=== PATIENT | male | born 1990 | race African-American/Black ===

== ENCOUNTER 2017-04-30 12:47 | Inpatient (IN) | payer MEDICAID ==
[~2017-04-30] VITALS: Ht 172.7 cm; Wt 51.7 kg
--- NOTE | 2017-04-30 12:50 | NUR ---
PATIENT BIB RA FROM [facility]. PATIENT IS STATING HE IS NOT FEELING WELL. PATIENT HAS A COUGH AND CONGESTION. A/OX 4. BREATHING EVEN AND UNLBAORED. VITALS STABLE. SAFETY AND COMFORT MEASURES IN PLACE. AWAITING MD ORDERS.
--- NOTE | 2017-04-30 13:04 | NUR ---
Juan damon in [facility] - 04/30/17 at [address] MCCOY ON THE PHONE WITH [facility] DR ESCOBEDO
[2017-04-30] MEDS ORDERED: ABAC1TAB15 PO (13:30)
[2017-04-30] MEDS ORDERED: ALBUTEROL FS 2.5 MG/3 ML VIAL.NEB NEB ONE (13:30)
[2017-04-30] MEDS ORDERED: ELVI1TAB3 PO (13:30)
[2017-04-30] MEDS ORDERED: EMTR1TAB18 PO (13:30)
[2017-04-30] MEDS ORDERED: NYSTATIN (PYXIS) 500,000 UNIT/5 ML ORAL.SUSP PO SCH (13:30)
[2017-04-30] MEDS ORDERED: IV NS 0.9% 1,000 ML BAG IV ONE ×2 (13:30→15:00)
[2017-04-30] MEDS ORDERED: IPRATROPIUM NEB FS 0.5 MG/2.5 ML AMPUL.NEB NEB ONE (13:30)
--- NOTE | 2017-04-30 13:30 | NUR ---
NEW IV STARTED ON RAC, 20 G. BLOOD DRAWN AND SENT TO LAB.
[2017-04-30 13:38] LABS: BASOPHILS % (AUTO) 0.3 % (0.0-2.0); EOSINOPHILS % (AUTO) 0.6 % (0.0-6.0); HEMATOCRIT 35 % (39-51); HEMOGLOBIN 11.6 g/dL (13.5-17.5); LYMPHOCYTES # (AUTO) 0.4 /CMM (0.8-4.8); LYMPHOCYTES % (AUTO) 9.3 % (20.0-44.0); MEAN CORPUSCULAR HEMOGLOBIN 29 PG (26.0-33.0); MEAN CORPUSCULAR HGB CONC 33 g/dl (31.0-36.0); MEAN CORPUSCULAR VOLUME 88 fL (80-96); MONOCYTES # (AUTO) 0.5 /CMM (0.1-1.30); MONOCYTES % (AUTO) 11.9 % (2.0-12.0); NEUTROPHILS # (AUTO) 3.1 /CMM (1.8-8.9); NEUTROPHILS % (AUTO) 77.9 % (43.0-81.0); PLATELET COUNT (AUTO) 307 /CMM (150-450); RDW COEFFICIENT OF VARIATION 22.7 (11.5-15.0); RED BLOOD CELL COUNT(AUTO) 4.01 MIL/uL (4.5-6.0)
--- NOTE | 2017-04-30 13:41 | NUR ---
GASTROENTEROLOGY PROFESSOR AT BEDSIDE.
[2017-04-30 13:46] LABS: INR 1.06 (0.87-1.13); PROTHROMBIN TIME 11.4 SECS (9.5-12.7)
[2017-04-30 13:49] LABS: ALANINE AMINOTRANSFERASE 20 U/L (12-78); ALBUMIN 3.1 g/dL (3.4-5.0); ALKALINE PHOSPHATASE 71 U/L (46-116); ASPARTATE AMINOTRANSFERASE 12 U/L (15-37); BILIRUBIN,DIRECT 0.1 mg/dL (0.0-0.2); BILIRUBIN,TOTAL 0.2 mg/dL (0.2-1.0); CALCIUM, SERUM 8.9 mg/dL (8.5-10.1); CARBON DIOXIDE 27 mmol/L (21-32); CHLORIDE 102 mmol/L (98-107); CREATININE 0.8 mg/dL (0.6-1.3); GLUCOSE 83 mg/dL (74-106); POTASSIUM 4.2 mmol/L (3.5-5.1); SODIUM SERUM 138 mmol/L (136-145); TOTAL PROTEIN, SERUM 8.2 g/dL (6.4-8.2); UREA NITROGEN, BLOOD 8 mg/dL (7-18)
[2017-04-30 13:51] LABS: TROPONIN I < 0.017 ng/mL (0.00-0.056)
[2017-04-30] MEDS ORDERED: IPRATROPIUM NEB FS 0.5 MG/2.5 ML AMPUL.NEB ONE (14:10)
[2017-04-30] MEDS ORDERED: ALBUTEROL FS 2.5 MG/3 ML VIAL.NEB ONE (14:10)
[2017-04-30 14:39] LABS: BILIRUBIN,URINE SMALL (NEGATIVE); BLOOD, URINE Negative Ery/uL (NEGATIVE); COLOR,URINE Dark (YELLOW); KETONES,URINE Negative (NEGATIVE); LEUKOCYTE ESTERASE ,URINE Negative (NEGATIVE); NITRITE, URINE Negative (NEGATIVE); PH,URINE 6.5 (5.0-8.0); PROTEIN,URINE Trace mg/dl (NEGATIVE); UGLUCOSE Negative (NEGATIVE)
[2017-04-30 14:40] LABS: APPEARANCE,URINE CLOUDY (CLEAR)
--- NOTE | 2017-04-30 14:51 | NUR ---
RECTAL TEMP RECHECKED, READING 102.9. INFORMED.
[2017-04-30] MEDS ORDERED: MORPHINE SULFATE INJ 4 MG/ML DISP.SYRIN ONE (14:55)
[2017-04-30] MEDS ORDERED: MORPHINE SULFATE INJ 2 MG/ML DISP.SYRIN IV ONE (15:00)
[2017-04-30 15:03] LABS: BACTERIA,URINE Few /HPF (None Seen); RBC,URINE 0-2 /HPF (0-2); SQUAMOUS EPITHELIAL CELL,UR Rare /HPF (None Seen); WBC,URINE 0-2 /HPF (0-3)
[2017-04-30 15:04] LABS: CALCIUM OXALATE CRYSTALS,UR Moderate /HPF (None Seen)
[2017-04-30] MEDS ORDERED: OLAN15TA3 PO (15:30)
[2017-04-30] MEDS ORDERED: BUPR75TA8 PO (15:30)
[2017-04-30] MEDS ORDERED: SULF1TAB48 PO (15:30)
[2017-04-30] MEDS ORDERED: GUAI5SYR PO (15:30)
[2017-04-30] MEDS ORDERED: ALBU18HF2 IH (15:30)
[2017-04-30] MEDS ORDERED: TEMA15CA PO (15:30)
[2017-04-30] MEDS ORDERED: LORA1TAB PO (15:30)
[2017-04-30] MEDS ORDERED: IBUP-1955 PO (15:30)
--- NOTE | 2017-04-30 15:47 | NUR ---
REPORT GIVEN TO RN SARI FOR ADMISSION.
[2017-04-30 16:30] VITALS: BP 109/63
--- NOTE | 2017-04-30 16:43 | NUR ---
PATIENT TRANSPORTED TO [facility] VIA ACLS PROTOCOL. RN SARI TO PROVIDE BEBETO.
--- NOTE | 2017-04-30 17:26 | NUR ---
AM RN NOTE Received patient from ER @ 1640 via [place] as accompanied by ER staff. Pt A/O X3 verbally responsive. Resp even and non-labored. On tele monitor, SR 94. Denies any pain or discomfort at this time. Pt frequently requesting for food. Admission process done. Skin intact. IV site on RAC #20 intact. Bed in low locked position. Will continue to monitor. Notified Dr. Chen about new admission and new orders received. Call light with in reach. V/S BP109/63 T98.4 P93 R20 PA0/10 O2 sat 99% @RA.
[2017-04-30] MEDS ORDERED: MAGNESIUM HYDROXIDE 30 ML UDC PO PRN (17:30)
[2017-04-30] MEDS ORDERED: Z GUARD REMEDY 2 OZ OINT TP PRN (17:30)
[2017-04-30] MEDS ORDERED: MAG HYDROX/AL HYDROX/SIMETH 30 ML UDC PO PRN (17:30)
[2017-04-30] MEDS ORDERED: ZOLPIDEM TARTRATE 5 MG TABLET PO PRN (17:30)
[2017-04-30] MEDS: IV D5/0.45 NACL 1,000 ML IV PRN (17:49)
--- NOTE | 2017-04-30 18:21 | NUR ---
AM RN NOTE Patient resting in his bed, no acute distress noted. IV site intact and patent, continue on IV hydration. Will endorse care to next shift.
[2017-04-30 18:45] LABS: ABG BASE EXCESS -2.5 mmol/L; ABG OXYGEN SATURATION 97.4 % (92.0-98.5); ABG PCO2 31.3 mmHg (35.0-45.0); ABG PH 7.442 (7.350-7.450); ABG PO2 107.3 mmHg (75.0-100.0); COHb 0.5 % (0.5-1.5); MetHb 0.5 % (0.0-1.5); O2Hb 96.4 % (94.0-97.0); SITE, ABG Left Radial; VENT MODE, BG ROOM AIR
[2017-04-30] MEDS: ONDANSETRON HCL/PF 4 MG/2 ML VIAL IVP PRN (18:51)
--- NOTE | 2017-04-30 18:55 | NUR ---
AM RN NOTE Patient vomited moderate amount undigested food after eating dinner. PRN Zofran IV given and notified Dr. Chen. Will continue to monitor and endorse care to next shift.
--- NOTE | 2017-04-30 19:20 | NUR ---
TELE/RN OPENING NOTES PT ASLEEP, EASILY AROUSABLE TO NAME. A/OX3, ON RA, BREATHING EVEN AND UNLABORED. NO SIGNS OF DISTRESS. ON TELE MONITOR SHOWING SINUS RHYTHM WITH HR 90. IV TO RAC PATENT AND INTACT RUNNING IVF ORDERED. NO S/S OF INFILTRATION NOTED. PT AWARE OF STOOL COLLECTION. HAT PLACED IN TOILET. BED IN LOW/LOCKED POSITION WITH CALL LIGHT IN REACH. SIDE RAILS UPX2. WILL CONTINUE TO MONITOR
[2017-04-30 20:00] VITALS: BP 104/63
[2017-04-30] MEDS: ACETAMINOPHEN 325 MG TABLET PO PRN (20:34)
--- NOTE | 2017-04-30 20:36 | NUR ---
TELE/RN NOTES PT COMPLAINING OF HEADACHE 11/19 AND PAIN TO THE THROAT. REQUESTED TYLENOL AND ADMINISTERED PRN TYLENOL 650MG PO. OFFERED TEA OR ICE CHIPS TO HELP SOOTHE THE THROAT BUT PT REFUSED AT THIS TIME. Addendum: 04/30/17 at 2101 by VAMSI DINERO RN NOTIFIED REBECCA BURNHAM ABOUT PT'S COMPLAINT OF SORE THROAT. ASKED IF HE WOULD LIKE TO ORDER COUGH SYRUP BUT HE DENIED.
[2017-05-01] VITALS (7 sets, daily range): BP systolic 90–111; BP diastolic 50–72
[2017-05-01 06:59] LABS: BASOPHILS % (AUTO) 0.3 % (0.0-2.0); HEMATOCRIT 34 % (39-51); HEMOGLOBIN 11.1 g/dL (13.5-17.5); LYMPHOCYTES # (AUTO) 0.6 /CMM (0.8-4.8); LYMPHOCYTES % (AUTO) 18.3 % (20.0-44.0); MEAN CORPUSCULAR HEMOGLOBIN 29 PG (26.0-33.0); MEAN CORPUSCULAR HGB CONC 33 g/dl (31.0-36.0); MEAN CORPUSCULAR VOLUME 88 fL (80-96); MONOCYTES # (AUTO) 0.6 /CMM (0.1-1.30); MONOCYTES % (AUTO) 19.6 % (2.0-12.0); NEUTROPHILS # (AUTO) 1.9 /CMM (1.8-8.9); NEUTROPHILS % (AUTO) 60.8 % (43.0-81.0); PLATELET COUNT (AUTO) 322 /CMM (150-450); RDW COEFFICIENT OF VARIATION 22.5 (11.5-15.0); RED BLOOD CELL COUNT(AUTO) 3.83 MIL/uL (4.5-6.0); WHITE BLOOD COUNT (AUTO) 3.1 K/uL (4.3-11.0)
[2017-05-01 07:18] LABS: THYROID STIMULATING HORMONE 1.212 uIU/mL (0.358-3.74)
[2017-05-01 07:28] LABS: INR 1.06 (0.87-1.13); PROTHROMBIN TIME 11.4 SECS (9.5-12.7)
--- NOTE | 2017-05-01 07:30 | NUR ---
TELE/RN CLOSING NOTES PT ASLEEP, EASILY AROUSABLE TO NAME. ON RA, BREATHING EVEN AND UNLABORED. NO S/S OF DISTRESS NOTED. ON TELE MONITOR, SR WITH HEART RATE @82. IV DISLODGED AND REINSERTED TO LEFT WRIST, PATENT AND INTACT. UNABLE TO COLLECT STOOL LAST NIGHT, PT DID NOT HAVE BM. SNACKS PROVIDED DURING SHIFT, NO COMPLAINTS OF N/V. TOLERATED WELL. BED IN LOW/LOCKED POSITION, CALL LIGHT IN REACH. MADE PT COMFORTABLE THROUGHOUT SHIFT, ALL NEEDS MET AND ATTENDED. WILL ENDORSE TO AM SHIFT BEBETO.
[2017-05-01 07:37] LABS: RETICULOCYTE COUNT 0.5 % (0.6-2.5)
[2017-05-01 07:40] LABS: ALBUMIN 2.7 g/dL (3.4-5.0); BILIRUBIN,TOTAL 0.2 mg/dL (0.2-1.0); CALCIUM, SERUM 8.6 mg/dL (8.5-10.1); CREATININE 0.6 mg/dL (0.6-1.3); MAGNESIUM 1.7 mg/dL (1.8-2.4); PHOSPHORUS 3.3 mg/dL (2.5-4.9); POTASSIUM 4.3 mmol/L (3.5-5.1); TOTAL PROTEIN, SERUM 7.4 g/dL (6.4-8.2)
--- NOTE | 2017-05-01 07:48 | NUR ---
RN OPENING NOTES PATIENT IS RESTING IN BED WITH EYES CLOSED, EASILY AROUSABLE. PATIENT IS A/OX3. DENIES SOB. RESPIRATIONS APPEAR TO BE EVEN AND UNLABORED AT THIS TIME. COMPLAINT OF THROAT PAIN. PATIENT COUGHING AND SPITTING SPUTUM UP INTO TRASH. NO ACUTE DISTRESS NOTED. IV RAC INTACT WITH D5 1/2 NS AT 75ML/HR. BED LOCKED IN THE LOWEST POSITION WITH SIDE RAILS UP X2. CALL LIGHT WITHIN REACH. WILL CONTINUE TO MONITOR.
[2017-05-01] MEDS: ONDANSETRON HCL/PF 4 MG/2 ML VIAL IVP PRN ×2 (08:19→22:01)
[2017-05-01] MEDS: PANTOPRAZOLE 40 MG TABLET.DR PO SCH (08:19)
[2017-05-01 08:32] LABS: EOSINOPHILS % (MANUAL) 2 % (0-4); LYMPHOCYTES % (MANUAL) 20 % (16-48); MONOCYTES % (MANUAL) 17 % (0-11.0); NEUTROPHILS % (MANUAL) 61 (42-76)
--- NOTE | 2017-05-01 08:48 | NUR ---
RN NOTES PATIENT REQUESTING FOR DIET CHANGE TO SOFT FOODS/ PUREED DUE TO SEVERE THROAT PAIN. DISCUSSED WITH CHARGE NURSE AND GIVEN OK TO CHANGE.
[2017-05-01] MEDS: Magnesium 1GM/D5W 100ML PREMIX 100 ML IV SCH ×2 (09:49→10:51)
--- NOTE | 2017-05-01 09:52 | NUR ---
RN NOTES PATIENT D/C TELE. WILL CONTINUE TO MONITOR PATIENT.
[2017-05-01] MEDS: HYDROCODONE/APAP 5/325MG 1 EACH TABLET PO PRN ×2 (10:51→22:43)
--- NOTE | 2017-05-01 12:46 | NUR ---
RN NOTES PATIENT RECEIVED 2 BAGS OF IV MAGNESIUM REPLACEMENT. PATIENT AMBULATED WITH PT. SPUTUM SAMPLE SENT TO LAB. WILL ATTEMPT TO COLLECT STOOL FOR OB STOOL.
[2017-05-01] MEDS: ACETAMINOPHEN 325 MG TABLET PO PRN (14:22)
[2017-05-01] MEDS ORDERED: TEMAZEPAM 15 MG CAPSULE PO PRN (17:00)
[2017-05-01] MEDS ORDERED: LORAZEPAM 1 MG TABLET PO PRN (17:00)
[2017-05-01] MEDS ORDERED: SULFAMETH/TRIMETH 800/160 MG 1 UDTAB TABLET PO SCH (17:00)
[2017-05-01] MEDS ORDERED: GUAIFENESIN/D-METHORPHAN HB 5 ML UDC PO PRN (17:00)
--- NOTE | 2017-05-01 17:06 | NUR ---
RN NOTES MEDICATION RECONCILIATION COMPLETED BY DR. DURHAM. PHARMACY CALLED TO ASK ABOUT PATIENT HOME MEDS. SPOKE IWTH PATIENT. PATIENT STATED THAT BELONGINGS AND HOME MEDICATIONS ARE AT [facility] WHERE PATIENT WAS BROUGHT TO ER FROM. CALLED FACILITY AND DISCUSSED SITUATION OF NEEDING TO RECEIVE PATIENTS HIV MEDICATIONS. FIBERGLASS ROVING WINDER RAMÍREZ WILL FOLLOW UP WITH THE THREAD TWISTER TO GET PATIENT BELINGS AND MEDICATIONS SENT TO [facility]. NOTIFIED PHARMACY.
--- NOTE | 2017-05-01 17:45 | NUR ---
RN NOTES PATIENT BELONGS SENT OVER FROM [facility]. PATIENT ACCOUNTED FOR BELONGING. WAS TOLD BY CARD PUNCHER JAMES THAT MEDICATION AND BELONGINGS WOULD BE SENT OVER. NO MEDICATION WAS SENT OVER. CALLED [facility] BACK TO FOLLOW UP AND LEFT MESSAGE FOR NURSING SENIOR ESCROW OFFICER WILL AWAIT RESPONSE FROM FACILITY. PATIENT DENIES OWNING HIV MEDICATIONS.
[2017-05-01] MEDS ORDERED: ALBUTEROL FS 2.5 MG/3 ML VIAL.NEB NEB PRN (19:30)
--- NOTE | 2017-05-01 19:30 | NUR ---
MS/RN OPENING NOTES PT AWAKE, A/OX3. ON RA, BREATHING EVEN AND UNLABORED. NO S/S OF SOB OR DISTRESS NOTED. PT AWARE ABOUT COLLECTION FOR OB STOOL. IV TO LEFT WRIST PATENT AND INTACT. PT COMPLAINING ABOUT SORE THROAT. INFORMED PT THAT HE CAN HAVE ROBITUSSIN AND ALSO OFFERED WARM TEA TO HELP SOOTHE HIS THROAT. PT ACCEPTED. WILL ADMINISTER. PT ALSO REQUESTING TO GO OUTSIDE TO SMOKE, HOWEVER HIGHLY ENCOURAGED PT NOT TO BECAUSE IT WOULD FURTHER IRRITATE HIS THROAT. PT VERBALIZED UNDERSTANDING. BED IN LOW/LOCKED POSITION, CALL LIGHT IN REACH. SIDE RAILS UPX2. BELONGINGS AT BEDSIDE. WILL CONTINUE TO MONITOR
--- NOTE | 2017-05-01 20:13 | NUR ---
MS/RN NOTES PT SAID HE DOES NOT HAVE ANY HOME MEDICATIONS AND STATED THAT THE HOSPITAL WAS DISPENSING HIS MEDICATION FROM THEIR OWN PHARMACY. CALLED [facility] TO FOLLOW UP WITH THE PT'S 3 HOME MEDICATIONS, HOWEVER THEY SAID THAT THEY DONT KNOW A PATIENT BY THAT LAST NAME AND THAT I SHOULD CALL BACK TOMORROW. WILL FOLLOW UP AGAIN
--- NOTE | 2017-05-01 20:25 | NUR ---
RN CLOSING NOTES PATIENT IS AWAKE IN BED. PATIENT DENIES SOB OR CHEST PAIN AT THIS TIME. NO ACUTE DISTRESS. ALL NEEDS MET DURING SHIFT. PATIENT IS IN STABLE CONDITION. PATIENT DENIES NAUSEA. ALL MEDS GIVEN APPROPRIATE. BED LOCKED IN THE LOWEST POSITION WITH SIDE RAILS UPX2. CALL LIGHT WITHIN REACH. REPORT GIVEN TO NIGHT RN FOR CONTINUATION OF CARE.
--- NOTE | 2017-05-01 22:05 | NUR ---
MS/RN NOTES PT HAD 3 EPISODES OF EMESIS. ADMINISTERED PRN ZOFRAN. GERALDO WARREN ALSO AT BEDSIDE AT THIS TIME Addendum: 05/02/17 at 0506 by VAMSI DINERO RN NIDHI LEE NP AT BEDSIDE
[2017-05-01] MEDS: IV D5/0.45 NACL 1,000 ML IV PRN (22:30)
--- NOTE | 2017-05-01 23:00 | NUR ---
MS/RN NOTES PT COMPLAINING OF PAIN TO CHEST, ADMINISTERED PRN NORCO. WILL MONITOR FOR EFFECTIVENESS
[2017-05-02] MEDS: ONDANSETRON HCL/PF 4 MG/2 ML VIAL IVP PRN ×2 (04:33→12:48)
[2017-05-02] MEDS: HYDROCODONE/APAP 5/325MG 1 EACH TABLET PO PRN ×3 (04:38→20:26)
--- NOTE | 2017-05-02 04:48 | NUR ---
MS/RN NOTES PT NOTED TO BE EXPERIENCING SOME NAUSEA AGAIN AND CHEST TIGHTNESS/PAIN 04/21. ADMINISTERED PRN TYLENOL AND NORCO. WILL MONITOR FOR EFFECTIVENESS
--- NOTE | 2017-05-02 06:48 | NUR ---
MS/RN CLOSING NOTES PT ASLEEP, EASILY AROUSABLE TO NAME. A/OX3, ON RA BREATHING EVEN AND UNLABORED. NO S/S /OF DISTRESS NOTED. DENIES PAIN AND NAUSEA AT THIS TIME. IV TO LEFT WRIST RUNNING IVF ORDERED. FREQUENTLY PROVIDED WARM TEA TO SOOTHE THROAT. NO SIGNIFICANT CHANGES OVERNIGHT. MADE PT COMFORTABLE THROUGHOUT SHIFT. ALL NEEDS MET AND ATTENDED. BED IN LOW/LOCKED POSITION WITH CALL LIGHT IN REACH. SIDE RAILS UPX2. WILL ENDORSE TO AM SHIFT BEBETO.
--- NOTE | 2017-05-02 07:56 | NUR ---
RN OPENING NOTES PATIENT IS RESTING IN BED WITH EYES CLOSED, EASILY AROUSABLE. PATIENT IS A/OX3. DENIES SOB. RESPIRATIONS APPEAR TO BE EVEN AND UNLABORED AT THIS TIME. COMPLAINT OF THROAT PAIN. PATIENT COUGHING AND SPITTING SPUTUM UP INTO TRASH. NO ACUTE DISTRESS NOTED. IV RAC INTACT WITH D5 1/2 NS AT 75ML/HR. F/U HIV MEDICATIONS WITH PHARMACY. BED LOCKED IN THE LOWEST POSITION WITH SIDE RAILS UP X2. CALL LIGHT WITHIN REACH. WILL CONTINUE TO MONITOR.
[2017-05-02 08:00] VITALS: BP 111/69
[2017-05-02] MEDS ORDERED: DOLUTEGRAVIR PO SCH (09:00)
[2017-05-02] MEDS ORDERED: ABACAVIR PO SCH (09:00)
[2017-05-02] MEDS ORDERED: Elviteg/Cobi/Emtric/Tenofo Ala (Genvoya Tablet) 1 EACH) PO SCH (09:00)
[2017-05-02] MEDS ORDERED: LAMIVUDI PO SCH (09:00)
[2017-05-02] MEDS ORDERED: EMTRICITABINE/TENOFOVIR 1 TAB PO SCH (09:00)
[2017-05-02] MEDS ORDERED: [UNRECOGNIZED DRUG - OTHER] PO SCH (09:00)
[2017-05-02 09:14] LABS: *BASOS 0 % (.); *EOS 1 % (.); *HCT 33.7 % (37.5-51.0); *HGB 10.9 g/dL (12.6-17.7); *IMMATURE GRANULOCYTES 1 % (.); *LYMPHOCYTES 20 % (.); *LYMPHS, ABSOLUTE 0.5 x10E3/uL (0.7-3.1); *MCH 28.5 pg (26.6-33.0); *MCHC 32.3 g/dL (31.5-35.7); *MCV 88 fL (79-97); *MONOCYTES 18 % (.); *MONOS, ABSOLUTE 0.5 x10E3/uL (0.1-0.9); *NEUTROPHILS 60 % (.); *NEUTROPHILS, ABSOLUTE 1.6 x10E3/uL (1.4-7.0); *PLT 349 x10E3/uL (150-379); *RBC 3.83 x10E6/uL (4.14-5.80); *RDW 19.9 % (12.3-15.4)
[2017-05-02] MEDS: NYSTATIN (PYXIS) 500,000 UNIT/5 ML ORAL.SUSP PO SCH ×3 (09:22→18:48)
[2017-05-02] MEDS: SULFAMETH/TRIMETH 800/160 MG 1 UDTAB TABLET PO SCH (09:23)
[2017-05-02] MEDS: buPROPion 75 MG TABLET PO SCH (09:23)
[2017-05-02] MEDS: PANTOPRAZOLE 40 MG TABLET.DR PO SCH (09:23)
[2017-05-02] MEDS: OLANZAPINE 5 MG TABLET PO SCH (09:23)
[2017-05-02] MEDS: FLUCONAZOLE (100 MG) 100 MG TABLET PO SCH (09:23)
--- NOTE | 2017-05-02 09:35 | NUR ---
RN NOTES WILL D/C HOME HIV MEDS. COMMENT STATES "PER RN, PATIENT DOESN'T TAKE THESE. ID PLACED NEW ORDERS. PLEASE D/C." PATIENT TO START OTHER HIV MEDS.
[2017-05-02] MEDS: RALTEGRAVIR POTASSIUM 400 MG TABLET PO SCH ×2 (10:52→18:48)
[2017-05-02] MEDS: TENOFOVIR DISOPROXIL FUMARATE 300 MG TABLET PO SCH (10:53)
[2017-05-02] MEDS: EMTRICITABINE 200 MG CAPSULE PO SCH (10:53)
--- NOTE | 2017-05-02 11:19 | NUR ---
Social service consult requested by Dr. Chen for homelessness. Pt. is a 26 year old -[place] male who was admitted to [facility] from [facility] for HIV elver infection. MADDY met with pt. bedside. Pt. is alert and oriented x 4. Pt. was lying in bed during the assessment. Pt. has tattoos on his face that says "5150". Pt. states he has been homeless for a month. Pt. receives General Relief in the amount of $250/per month and food stamps as well. Pt. denies suicidal and homicidal ideations and visual/auditory hallucinations at this time. Pt. was admitted to [facility] from [facility]. MADDY offered pt. voluntary admission back to [facility], however pt. declined. Pt. states he would like to be discharged to his boyfriend James's residence located at [facility] [address] MADDY informed pt. she will inform supervisor in charge regarding pt. needing transportation upon discharge (tokens or taxi). Pt. has had several psychiatric hospitalizations in the past. Pt. has diagnosis of Bipolar Schizophrenia and takes medications. SW to offer pt. the following resources prior to discharge: list of HIV/AIDS [facility] community clinics in [place]; [facility] Urgent Care centers; [facility] Public [facility] Centers; List of [employer] in [place] area and List of Homeless Shelters, [employer] and Homeless Resource Directory.
--- NOTE | 2017-05-02 11:26 | NUR ---
RN NOTES PATIENT IV ACCESS BECAME INFILTRATED. IV REMOVED. NO IV PLACED IN THE LEFT FOREARM. IV PATENT AND INTACT. ONE ATTEMPT. PATIENT TOLERATED WELL. D51/2 NS RUNNING AT 75ML/HR. WILL CONTINUE TO MONITOR.
--- NOTE | 2017-05-02 12:20 | NUR ---
AMDDY met with pt. bedside and gave him the following resources: list of HIV/AIDS [facility] community clinics in [place]; [facility] Urgent Care centers; [facility] Public Health Centers; List of [employer] in [place] area and List of Homeless Shelters, [employer] and Homeless Resource Directory. Pt. informed pt's RN regarding discharge plan. Homeless Patient Waiver Form was signed by pt and placed in pt's chart. Pt. to be discharged to [address] [place] [address]. [place]. Addendum: 05/02/17 at 1509 by QUINTON CASTAÑEDA Correction: MADDY informed pt' s RN regarding discharge plan. Addendum: 05/03/17 at 1220 by QUINTON CASTAÑEDA MADDY placed copies of aforementioned resources in pt's chart.
[2017-05-02 16:00] VITALS: BP 108/69
[2017-05-02 16:41] LABS: C-REACTIVE PROTEIN 0.3 mg/dL (0.0-0.9); THYROID STIMULATING HORMONE 1.772 uIU/mL (0.358-3.74); URIC ACID 2.5 mg/dL (2.6-7.2)
[2017-05-02] MEDS ORDERED: LACTOSE-FREE FOOD 237 ML LIQUID PO SCH (17:00)
[2017-05-02 17:25] LABS: RETICULOCYTE COUNT 0.9 % (0.6-2.5)
--- NOTE | 2017-05-02 18:42 | NUR ---
RN NOTES PATIENT REMOVED OFF NPO. VIT B ORDERED PER DR. DURHAM. BOOST ORDER PER DIETARY
--- NOTE | 2017-05-02 18:45 | NUR ---
RN NOTES CALLED KITCHEN FOR BOOST. KITCHEN STATED NO STRAWBERRY BOOST. BOOST CHANGE TO VANILLA AND WILL START TOMORROW
--- NOTE | 2017-05-02 19:30 | NUR ---
MS RN NOTE RECEIVED PATIENT AWAKE AND ALERT IN BED. PATIENT STATES HE IS HAVING 8/10 GENERALIZED PAIN. RELAXATION TECHNIQUES PROVIDED. WILL ADMINISTER PAIN MEDICATION ORDERED. NO COUGH NOTED. PATIENTS APPETITE IS INCREASING. STATED HE WOULD LIKE TWO JELLOS AND TWO APPLE JUICE. BED LOCKED AND IN LOWEST POSITION, SIDE RAILS UP, CALL LIGHT WITHIN REACH. WILL CONTINUE TO MONITOR.
[2017-05-02 20:24] VITALS: BP 110/68
[2017-05-02] MEDS ORDERED: MUPIROCIN OINT 2% 22 GM TUBE SCH (21:00)
[2017-05-02 22:00] VITALS: BP 110/68
[2017-05-03 03:14] LABS: *% CD 4 POS. LYMPH 0.9 % (30.8-58.5); *% CD 8 POS. LYMPH 52.9 % (12.0-35.5); *ABSOLUTE CD 4 HELPER 5 /uL (359-1519); *ABSOLUTE CD 8 SUPPRESSOR 265 /uL (109-897); *CD4/CD8 RATIO 0.02 (0.92-3.72)
--- NOTE | 2017-05-03 06:28 | NUR ---
MS RN NOTE PATIENT STABLE. WILL ENDORSE TO DAY SHIFT FOR BEBETO.
[2017-05-03 06:42] LABS: BASOPHILS % (AUTO) 0.9 % (0.0-2.0); EOSINOPHILS # (AUTO) 0.1 /CMM (0.0-0.7); EOSINOPHILS % (AUTO) 2.5 % (0.0-6.0); HEMATOCRIT 34 % (39-51); HEMOGLOBIN 11.1 g/dL (13.5-17.5); LYMPHOCYTES # (AUTO) 0.8 /CMM (0.8-4.8); LYMPHOCYTES % (AUTO) 19.4 % (20.0-44.0); MEAN CORPUSCULAR HEMOGLOBIN 29 PG (26.0-33.0); MEAN CORPUSCULAR HGB CONC 32 g/dl (31.0-36.0); MEAN CORPUSCULAR VOLUME 89 fL (80-96); MONOCYTES # (AUTO) 0.7 /CMM (0.1-1.30); MONOCYTES % (AUTO) 15.5 % (2.0-12.0); NEUTROPHILS # (AUTO) 2.6 /CMM (1.8-8.9); NEUTROPHILS % (AUTO) 61.7 % (43.0-81.0); PLATELET COUNT (AUTO) 341 /CMM (150-450); RDW COEFFICIENT OF VARIATION 22.1 (11.5-15.0); RED BLOOD CELL COUNT(AUTO) 3.84 MIL/uL (4.5-6.0); WHITE BLOOD COUNT (AUTO) 4.3 K/uL (4.3-11.0)
--- NOTE | 2017-05-03 07:32 | NUR ---
RN OPENING NOTES PATIENT IS STANDING BY DOOR IN HALLWAY. PATIENT IS A/OX3. DENIES SOB. RESPIRATIONS APPEAR TO BE EVEN AND UNLABORED AT THIS TIME. PATIENT HAS NO COMPLAINTS OF PAIN. PATIENT DENIES NAUSEA. PATIENT COUGHING AND SPITTING SPUTUM UP. NO ACUTE DISTRESS NOTED. IV LFA INTACT AND PATENT. PATIENT EAGER TO GO OUTSIDE AND SMOKE. BED LOCKED IN THE LOWEST POSITION WITH SIDE RAILS UP X2. CALL LIGHT WITHIN REACH. WILL CONTINUE TO MONITOR.
[2017-05-03 07:59] LABS: BAND % (MANUAL) 2 % (0.0-5.0); EOSINOPHILS % (MANUAL) 2 % (0-4); LYMPHOCYTES % (MANUAL) 21 % (16-48); MONOCYTES % (MANUAL) 8 % (0-11.0); NEUTROPHILS % (MANUAL) 67 (42-76)
[2017-05-03 08:00] VITALS: BP 114/71
[2017-05-03] MEDS: NYSTATIN (PYXIS) 500,000 UNIT/5 ML ORAL.SUSP PO SCH ×3 (09:06→16:45)
[2017-05-03] MEDS: OLANZAPINE 5 MG TABLET PO SCH (09:06)
[2017-05-03] MEDS: SULFAMETH/TRIMETH 800/160 MG 1 UDTAB TABLET PO SCH (09:06)
[2017-05-03] MEDS: TENOFOVIR DISOPROXIL FUMARATE 300 MG TABLET PO SCH (09:06)
[2017-05-03] MEDS: RALTEGRAVIR POTASSIUM 400 MG TABLET PO SCH ×2 (09:06→16:45)
[2017-05-03] MEDS: BOOST PLUS FOOD-VANILLA 237 ML BOX PO SCH ×2 (09:07→16:45)
[2017-05-03] MEDS: CYANOCOBALAMIN 500 MCG TABLET PO SCH (09:07)
[2017-05-03] MEDS: FLUCONAZOLE (100 MG) 100 MG TABLET PO SCH (09:07)
[2017-05-03] MEDS: buPROPion 75 MG TABLET PO SCH (09:07)
[2017-05-03] MEDS: PANTOPRAZOLE 40 MG TABLET.DR PO SCH (09:21)
[2017-05-03] MEDS: ONDANSETRON HCL/PF 4 MG/2 ML VIAL IVP PRN (09:29)
[2017-05-03] MEDS: EMTRICITABINE 200 MG CAPSULE PO SCH (10:50)
[2017-05-03] MEDS: HYDROCODONE/APAP 5/325MG 1 EACH TABLET PO PRN ×3 (12:08→21:24)
[2017-05-03 16:00] VITALS: BP 115/74
[2017-05-03] MEDS: IV D5/0.45 NACL 1,000 ML IV PRN (16:53)
--- NOTE | 2017-05-03 18:39 | NUR ---
RN CLOSING NOTES PATIENT AOX4. PATIENT IS RESTING QUIETLY IN BED WITH EYES CLOSED. PATIENT MEDICATED ONCE WITH ZOFRAN AND NORCO X2. PATIENT COMPLAINED OF LOWER CHEST PAIN. APPROPRIATE INTERVENTIONS WERE IMPLEMENTED. PATIENT IS NOT COMPLAINING OF NAUSEA OR PAIN AT THIS TIME. IV ACCESS 22 G LEFT FOREARM PATENT AND INTACT WITH D5 1/2 NS RUNNING AT 75 ML/HR. PATIENT DENIES SOB. NO ACUTE DISTRESS. STOOL SAMPLE COLLECTED AND SENT TO LAB. BED LOCKED IN THE LOWEST POSITION WITH SIDE RAILS UP X2. CALL LIGHT WITHIN REACH. WILL GIVE REPORT TO NIGHT RN FOR CONTINUATION OF CARE.
--- NOTE | 2017-05-03 19:30 | NUR ---
MS RN NOTE RECEIVED PATIENT ASLEP IN BED. EASILY AROUSABLE. PATIENT DENIES ANY PAIN OR DISCOMFORT AT THIS TIME. IV SITE INTACT WITH FLUIDS RUNNING ORDERED. BED LOCKED AND IN LOWEST POSITION. SIDE RAILS UP, CALL LIGHT WITHIN REACH. WILL CONTINUE TO MONITOR.
[2017-05-03 20:00] VITALS: BP 106/63
[2017-05-03] MEDS ORDERED: AZITHROMYCIN 600 MG TABLET PO SCH (20:00)
[2017-05-03 22:00] VITALS: BP 106/63
[2017-05-04 06:51] LABS: BASOPHILS % (AUTO) 0.9 % (0.0-2.0); EOSINOPHILS # (AUTO) 0.1 /CMM (0.0-0.7); EOSINOPHILS % (AUTO) 2.2 % (0.0-6.0); HEMATOCRIT 32 % (39-51); HEMOGLOBIN 10.3 g/dL (13.5-17.5); LYMPHOCYTES # (AUTO) 1.2 /CMM (0.8-4.8); LYMPHOCYTES % (AUTO) 34.9 % (20.0-44.0); MEAN CORPUSCULAR HEMOGLOBIN 29 PG (26.0-33.0); MEAN CORPUSCULAR HGB CONC 32 g/dl (31.0-36.0); MEAN CORPUSCULAR VOLUME 89 fL (80-96); MONOCYTES # (AUTO) 0.8 /CMM (0.1-1.30); NEUTROPHILS # (AUTO) 1.3 /CMM (1.8-8.9); PLATELET COUNT (AUTO) 349 /CMM (150-450); RDW COEFFICIENT OF VARIATION 22.4 (11.5-15.0); RED BLOOD CELL COUNT(AUTO) 3.59 MIL/uL (4.5-6.0); WHITE BLOOD COUNT (AUTO) 3.5 K/uL (4.3-11.0)
--- NOTE | 2017-05-04 06:52 | NUR ---
MS RN NOTE PATIENT STABLE. ALL NEEDS MET AND ATTENDED TO. WILL ENDORSE TO DAY SHIFT FOR BEBETO.
[2017-05-04] MEDS: IV D5/0.45 NACL 1,000 ML IV PRN (07:03)
[2017-05-04 07:21] LABS: CALCIUM, SERUM 8.4 mg/dL (8.5-10.1); CREATININE 0.7 mg/dL (0.6-1.3); MAGNESIUM 1.7 mg/dL (1.8-2.4); PHOSPHORUS 3.1 mg/dL (2.5-4.9)
[2017-05-04 07:30] VITALS: BP 99/58
--- NOTE | 2017-05-04 07:30 | NUR ---
MS RN AM NOTES PATIENT ASLEEP, RESPONDS TO NAME AND TOUCH, A/OX3. ON RA, NOT IN ANY DISTRESS, NO SOB, RESPIRATION, UNLABORED. DENIES PAIN OR DISCOMFORT. D5 1/2 NS AT 75ML/HR INFUSING WELL TO LEFT FA G22, SITE CLEAR. NO COUGH,NO NAUSEA, PATIENT EAGER TO GO OUTSIDE AND SMOKE. BED LOCKED IN THE LOWEST POSITION WITH SIDE RAILS UP X2. CALL LIGHT WITHIN REACH. WILL CONTINUE TO MONITOR.
[2017-05-04 08:00] VITALS: BP 99/58
[2017-05-04 08:11] LABS: BAND % (MANUAL) 5 % (0.0-5.0); EOSINOPHILS % (MANUAL) 2 % (0-4); LYMPHOCYTES % (MANUAL) 33 % (16-48); MONOCYTES % (MANUAL) 24 % (0-11.0); NEUTROPHILS % (MANUAL) 36 (42-76)
--- NOTE | 2017-05-04 09:30 | NUR ---
MS RN NOTES ADMINISTERED DUE MEDS.
[2017-05-04] MEDS: RALTEGRAVIR POTASSIUM 400 MG TABLET PO SCH ×2 (09:36→16:24)
[2017-05-04] MEDS: BOOST PLUS FOOD-VANILLA 237 ML BOX PO SCH ×2 (09:36→16:24)
[2017-05-04] MEDS: OLANZAPINE 5 MG TABLET PO SCH (09:36)
[2017-05-04] MEDS: EMTRICITABINE 200 MG CAPSULE PO SCH (09:36)
[2017-05-04] MEDS: TENOFOVIR DISOPROXIL FUMARATE 300 MG TABLET PO SCH (09:36)
[2017-05-04] MEDS: CYANOCOBALAMIN 500 MCG TABLET PO SCH (09:37)
[2017-05-04] MEDS: buPROPion 75 MG TABLET PO SCH (09:37)
[2017-05-04] MEDS: PANTOPRAZOLE 40 MG TABLET.DR PO SCH (09:37)
[2017-05-04] MEDS: NYSTATIN (PYXIS) 500,000 UNIT/5 ML ORAL.SUSP PO SCH ×3 (09:37→16:24)
[2017-05-04] MEDS: SULFAMETH/TRIMETH 800/160 MG 1 UDTAB TABLET PO SCH (09:37)
[2017-05-04] MEDS: FLUCONAZOLE (100 MG) 100 MG TABLET PO SCH (09:39)
--- NOTE | 2017-05-04 09:50 | NUR ---
MS MANCUSO NOTES STARTED SHANNAN CAMPBELL TROUGH 15. Addendum: 05/04/17 at 1126 by DEEJAY DANIELS RN CORRECTION: DISREGARD THIS DOCUMENTATION INTENDED FOR ANOTHER PATIENT
[2017-05-04] MEDS: Magnesium 1GM/D5W 100ML PREMIX 100 ML IV SCH ×2 (10:46→11:41)
--- NOTE | 2017-05-04 10:46 | NUR ---
MS RN NOTES STARTED MAGNESIUM BAG #1.
--- NOTE | 2017-05-04 11:44 | NUR ---
MS RN NOTES STARTED MAGNESIUM BAG #2.
[2017-05-04] MEDS: ONDANSETRON HCL/PF 4 MG/2 ML VIAL IVP PRN ×2 (14:47→20:49)
[2017-05-04 16:00] VITALS: BP 96/60
[2017-05-04] MEDS: ACETAMINOPHEN 325 MG TABLET PO PRN (16:30)
[2017-05-04 18:00] VITALS: BP 96/60
--- NOTE | 2017-05-04 18:26 | NUR ---
MS RN CLOSING NOTES PATIENT RESTING IN BED, A/OX3. ON RA, NOT IN ANY DISTRESS, NO SOB, RESPIRATION, UNLABORED. DENIES PAIN OR DISCOMFORT. D5 1/2 NS AT 75ML/HR INFUSING WELL TO NIVIA g18 MIDLINE, SITE CLEAR. NO COUGH,NO NAUSEA, PATIENT EAGER TO GO OUTSIDE AND SMOKE. BED LOCKED IN THE LOWEST POSITION WITH SIDE RAILS UP X2. CALL LIGHT WITHIN REACH. ALL NEEDS MET. NO OTHER SIGNIFICANT CHANGE IN CONDITION. WILL ENDORSE TO NEXT SHIFT FOR BEBETO.
[2017-05-04] MEDS: HYDROCODONE/APAP 5/325MG 1 EACH TABLET PO PRN (18:34)
--- NOTE | 2017-05-04 19:30 | NUR ---
MS RN NOTE RECEIVED PATIENT FROM DAY SHIFT, PATIENT IS SLEEPING IN BED COMFORTABLY, NO S/S OF RESPIRATORY DISTRESS OR PAIN AT THIS TIME. MID LINE ON RIGHT UPPER ARM IS PATENT AND INTACT. SRX2, BED IN LOW POSITION, CALL LIGHT WITHIN REACH, WILL CONTINUE TO MONITOR PATIENT.
[2017-05-04 20:00] VITALS: BP 118/72
--- NOTE | 2017-05-04 20:50 | NUR ---
MS RN NOTE PATIENT COMPLAINS OF FEELING NAUSEOUS, ZOFRAN 4MG IVP GIVEN. WILL MONITOR EFFECTIVENESS.
[2017-05-05] MEDS: IV D5/0.45 NACL 1,000 ML IV PRN (00:18)
--- NOTE | 2017-05-05 06:40 | NUR ---
MS RN NOTE PATIENT IS RESTING IN BED COMFORTABLY, NO S/S OF RESPIRATORY DISTRESS OR PAIN AT THIS TIME. MIDLINE ON RIGHT UPPER ARM IS PATENT AND INTACT, FLUID IS RUNNING. NO ACUTE DISTRESS NOTED DURING THE CONTENT CURATOR, WILL ENDORSE TO DAY SHIFT NURSE FOR BEBETO.
--- NOTE | 2017-05-05 07:30 | NUR ---
RN OPENING NOTE RECEIVED PT. A&OX4. NO SOB, BREATHING UNLABORED ON ROOM AIR. SO S/S OF ACUTE DISTRESS. IV FLUIDS RUNNING AT 75 ML/HR. BED IS IN LOW POSITION, 2 SIDE RAILS UP, AND INSTRUCTED PT. TO USE CALL LIGHT WITHIN REACH. ALL NEEDS MET AT THIS TIME.
[2017-05-05 07:50] LABS: BASOPHILS % (AUTO) 0.8 % (0.0-2.0); EOSINOPHILS # (AUTO) 0.1 /CMM (0.0-0.7); EOSINOPHILS % (AUTO) 1.3 % (0.0-6.0); HEMATOCRIT 33 % (39-51); HEMOGLOBIN 10.6 g/dL (13.5-17.5); LYMPHOCYTES % (AUTO) 24.7 % (20.0-44.0); MEAN CORPUSCULAR HEMOGLOBIN 29 PG (26.0-33.0); MEAN CORPUSCULAR HGB CONC 32 g/dl (31.0-36.0); MEAN CORPUSCULAR VOLUME 90 fL (80-96); MONOCYTES # (AUTO) 0.9 /CMM (0.1-1.30); MONOCYTES % (AUTO) 21.3 % (2.0-12.0); NEUTROPHILS # (AUTO) 2.2 /CMM (1.8-8.9); NEUTROPHILS % (AUTO) 51.9 % (43.0-81.0); PLATELET COUNT (AUTO) 383 /CMM (150-450); RDW COEFFICIENT OF VARIATION 22.5 (11.5-15.0); RED BLOOD CELL COUNT(AUTO) 3.73 MIL/uL (4.5-6.0); WHITE BLOOD COUNT (AUTO) 4.2 K/uL (4.3-11.0)
[2017-05-05 08:00] VITALS: BP 107/65
[2017-05-05 08:00] LABS: CALCIUM, SERUM 8.4 mg/dL (8.5-10.1); CREATININE 0.7 mg/dL (0.6-1.3); MAGNESIUM 1.7 mg/dL (1.8-2.4); POTASSIUM 4.5 mmol/L (3.5-5.1)
[2017-05-05] MEDS: BOOST PLUS FOOD-VANILLA 237 ML BOX PO SCH (08:00)
[2017-05-05] MEDS: SULFAMETH/TRIMETH 800/160 MG 1 UDTAB TABLET PO SCH (09:01)
[2017-05-05] MEDS: PANTOPRAZOLE 40 MG TABLET.DR PO SCH (09:01)
[2017-05-05] MEDS: NYSTATIN (PYXIS) 500,000 UNIT/5 ML ORAL.SUSP PO SCH (09:01)
[2017-05-05] MEDS: FLUCONAZOLE (100 MG) 100 MG TABLET PO SCH (09:02)
[2017-05-05] MEDS: RALTEGRAVIR POTASSIUM 400 MG TABLET PO SCH (09:02)
[2017-05-05] MEDS: OLANZAPINE 5 MG TABLET PO SCH (09:02)
[2017-05-05] MEDS: buPROPion 75 MG TABLET PO SCH (09:02)
[2017-05-05] MEDS: CYANOCOBALAMIN 500 MCG TABLET PO SCH (09:02)
[2017-05-05] MEDS: TENOFOVIR DISOPROXIL FUMARATE 300 MG TABLET PO SCH (09:03)
[2017-05-05] MEDS: EMTRICITABINE 200 MG CAPSULE PO SCH (09:03)
[2017-05-05 09:12] LABS: BAND % (MANUAL) 2 % (0.0-5.0); EOSINOPHILS % (MANUAL) 2 % (0-4); LYMPHOCYTES % (MANUAL) 30 % (16-48); MONOCYTES % (MANUAL) 21 % (0-11.0); NEUTROPHILS % (MANUAL) 45 (42-76)
--- NOTE | 2017-05-05 09:12 | NUR ---
RN NOTES PT. WAS SEEN AND EXAMINED BY FERMIN MAURICIO NP.
--- NOTE | 2017-05-05 09:14 | NUR ---
RN NOTES PT. STATED THAT HE SMOKES. FERMIN MAURICIO EXPLAINED AND EDUCATED PT. ON THE RISKS OF SMOKING. PER ACNP PT. WAS ORDERED 14MG NICOTINE PATCH TO WEAR DAILY.
[2017-05-05] MEDS ORDERED: NICOTINE PATCH (14MG) 14 MG PATCH.TD24 TD SCH (09:30)
[2017-05-05] MEDS ORDERED: Magnesium 1GM/D5W 100ML PREMIX 100 ML IV SCH (10:00)
--- NOTE | 2017-05-05 12:15 | NUR ---
RN NOTES PT. VITALS, BP 107/65, PULSE 81, RR 20, TEMP. 98.6 F, O2 SATURATION 99%. A&OX4.
--- NOTE | 2017-05-05 12:16 | NUR ---
RN NOTES DISCHARGE PT. WAS DISCHARGED HOME IN MEDICALLY STABLE CONDITION. PT. LEFT HOSPITAL AMBULATORY AND RECEIVED BUS TOKENS. ID BAND AND IV WAS REMOVED WITHOUT COMPLICATIONS. PT. SIGNED DISCHARGE PAPERS, AND VERBALIZED UNDERSTANDING. PT. REFUSED TO REPLACE MAGNESIUM IV BEFORE DISCHARGE. PT. LEFT WITH DISCHARGE PAPER WORK.
[2017-05-05 16:13] LABS: *HIV-1 log10 RNA 5.132 (.)
== END 2017-05-05 12:10 | disposition home or self-care (01) | DRG 893 ==
LOC: ER 12:48 → TELE 15:58 → MED 05-01 09:50
PROVIDERS: ADMIT Internal Medicine; ATTEND Internal Medicine
DX: B20 Human immunodeficiency virus [HIV] disease (principal); E41 Nutritional marasmus; B37.81 Candidal esophagitis; J44.0 Chronic obstructive pulmonary disease with (acute) lower respiratory infection; B37.0 Candidal stomatitis; E43 Unspecified severe protein-calorie malnutrition; R45.851 Suicidal ideations; E27.2 Addisonian crisis; Z68.1 Body mass index [BMI] 19.9 or less, adult; R13.10 Dysphagia, unspecified; Z79.899 Other long term (current) drug therapy; Z59.0 Homelessness; J20.9 Acute bronchitis, unspecified; F20.0 Paranoid schizophrenia; F17.200 Nicotine dependence, unspecified, uncomplicated; F10.10 Alcohol abuse, uncomplicated; F14.10 Cocaine abuse, uncomplicated; E53.8 Deficiency of other specified B group vitamins; Z91.040 Latex allergy status; F19.90 Other psychoactive substance use, unspecified, uncomplicated
CPT/HCPCS: 36415; 36569; 36600; 71010-TC; 76700-TC; 80048-TC; 80053-TC; 80061-TC; 80076-TC; 81000-TC; 82272-TC; 82306; 82533; 82553-TC; 82728-TC; 82746; 83540-TC; 83605-TC; 83615-TC; 83735-TC; 84100-TC; 84443-TC; 84484-TC; 84550-TC; 85025-TC; 85045-TC; 85652-TC; 85730-TC; 86140-TC; 86360; 87040-TC; 87070-TC; 87081-TC; 87086-TC; 87536; 93307-TC; A4606; J2270; J2405; J3475; J3490; J7030; Z7610